=== PATIENT | female | born 1990 | race Caucasian/White ===

== ENCOUNTER 2017-04-26 19:36 | Emergency (ER) | payer SELFPAY ==
[2017-04-26 19:51] VITALS: BP 168/103
--- NOTE | 2017-04-26 20:35 | RAD ---
Indication: Lateral LEFT lower leg and ankle pain post fall. Comparison: No relevant prior exams available on the [facility] for comparison. Technique: AP and lateral views LEFT lower leg. Report: Negative for fracture or malalignment. Unremarkable soft tissue contours. IMPRESSION: Negative exam.
--- NOTE | 2017-04-26 21:35 | UC ---
Lower Extremity/Ankle HPI - HPI Summary HPI Summary: Fell on stairs twisted left ankle pain in left ankle radiating up fibula - History of Current Complaint Chief Complaint: UCLowerExtremity Stated Complaint: ANKLE Time Seen by Provider: 04/26/17 20:00 Hx Obtained From: Patient Hx Last Menstrual Period: iud ?: No Onset/Duration: Sudden Onset Pain Intensity: 6 Pain Scale Used: 0-10 Numeric Aggravating Factor(s): Standing, Ambulation Alleviating Factor(s): Rest, Elevation Able to Bear Weight: Yes - Allergies/Home Medications Allergies/Adverse Reactions: Allergies Allergy/AdvReac Type Severity Reaction Status Date / Time Bee Venom Allergy Severe Anaphylatic Verified 04/26/17 19:47 Shock Cefixime [From Suprax] Allergy Severe Anaphylatic Verified 04/26/17 19:47 Shock Sodium Benzoate [From Suprax] Allergy Severe Anaphylatic Verified 04/26/17 19:47 Shock Amoxicillin Allergy Intermediate Rash Verified 04/26/17 19:47 Penicillins Allergy Intermediate Rash Verified 04/26/17 19:47 PMH/Surg Hx/FS Hx/Imm Hx Previously Healthy: Yes - Surgical History Surgical History: Yes Surgery Procedure, Year, and Place: 2010 band both knees, T&A, wisdom teeth - Family History Known Family History: Positive: Diabetes, Other - cancer - Social History Occupation: Employed Full-time Lives: With Family Alcohol Use: Occasionally Substance Use Type: None Smoking Status (MU): Never Smoked Tobacco Review of Systems Constitutional: Negative Skin: Negative Eyes: Negative ENT: Negative Respiratory: Negative Cardiovascular: Negative Gastrointestinal: Negative Genitourinary: Negative Motor: Negative Neurovascular: Negative Musculoskeletal: Arthralgia - laft lateral ankle and fibula Neurological: Negative Psychological: Negative Is Patient Immunocompromised?: No All Other Systems Reviewed And Are Negative: Yes Physical Exam Triage Information Reviewed: Yes Appearance: Well-Appearing, Well-Nourished, Pain Distress - mild Vital Signs: Initial Vital Signs Temp 98 F 04/26/17 19:48 Pulse 86 04/26/17 19:48 Resp 16 04/26/17 19:48 BP 168/103 04/26/17 19:48 Pulse Ox 99 04/26/17 19:48 Vital Signs Reviewed: Yes Eye Exam: Normal Eyes: Positive: Conjunctiva Clear ENT Exam: Normal ENT: Positive: Normal ENT inspection, Hearing grossly normal. Negative: Nasal congestion, Nasal drainage, Trismus, Muffled/hoarse voice Neck exam: Normal Neck: Positive: Supple, Nontender Respiratory Exam: Normal Respiratory: Positive: Chest non-tender, No respiratory distress, No accessory muscle use Cardiovascular Exam: Normal Cardiovascular: Positive: RRR, Pulses Normal, Brisk Capillary Refill Musculoskeletal Exam: Other Musculoskeletal: Positive: No Edema, ROM Limited @ - left ankle Neurological Exam: Normal Neurological: Positive: Alert, Muscle Tone Normal Psychological Exam: Normal Skin Exam: Normal Diagnostics - Radiology No standard instances Xray Interpretation: No Acute Changes Radiology Interpretation Completed By: ED Physician, Radiologist Lower Extremity Course/Dx - Course Course Of Treatment: rice, juan a, gel ibuprofen follow with ortho prn - Differential Dx/Diagnosis Provider Diagnoses: Left ankle sprain Discharge - Discharge Plan Condition: Stable Disposition: HOME Patient Education Materials: Ibuprofen (By mouth), Ankle Sprain (ED), Ankle Stirrup Splint (ED), RICE Therapy (ED) Forms: *Work Release Referrals: Aj Peck MD [Medical Doctor] - If Needed Montserrat Marshall MD [Primary Care Provider] -
== END 2017-04-26 20:50 | disposition home or self-care (01) ==
LOC: UCEAST 19:36
DX: S93.402A Sprain of unspecified ligament of left ankle, initial encounter (principal); W10.9XXA Fall (on) (from) unspecified stairs and steps, initial encounter; Y93.9 Activity, unspecified; Y92.9 Unspecified place or not applicable; Z88.0 Allergy status to penicillin; Z91.030 Bee allergy status
CPT/HCPCS: 99213; G0463

== ENCOUNTER → 2017-07-07 19:13 | Emergency (ER) | payer BC, OTHER ==
[2017-07-07 19:17] VITALS: BP 151/99
[2017-07-07 19:49] LABS: Hematocrit 42 % (35-47); Hemoglobin 14.9 g/dl (12.0-16.0); Mean Corpuscular HGB Conc 35 g/dl (31-36); Mean Corpuscular Hemoglobin 31 pg (27-31); Mean Corpuscular Volume 88 fL (80-97); Mean Platelet Volume 9 um3 (7.4-10.4); Red Blood Count 4.82 10^6/ul (4.0-5.4); Red Cell Distribution Width 12 % (10.5-15); White Blood Count 8.8 10^3/ul (3.5-10.8)
--- NOTE | 2017-07-07 20:00 | ED ---
- HPI Summary HPI Summary: 27F presents with needle stick to right index finger. She states eh was pulling needle out of patient arm and nicked her finger through glove. no blood from area. washed hand immediately. felt a prick. does not believe is high risk source patient. medical number of source patient is [id number]. - History of Current Complaint Chief Complaint: EDExposureBodyFluid Stated Complaint: NEEDLE STICK Time Seen by Provider: 07/07/17 19:42 PMH/Surg Hx/FS Hx/Imm Hx Endocrine/Hematology History: Denies: Hx Diabetes, Hx Thyroid Disease Cardiovascular History: Reports: Hx Hypertension - not on meds Respiratory History: Denies: Hx Asthma, Hx Chronic Obstructive Pulmonary Disease (COPD) GI History: Denies: Hx Ulcer - Surgical History Surgery Procedure, Year, and Place: 2010 band both knees, T&A, wisdom teeth - Immunization History Date of Tetanus Vaccine: UTD Immunizations Up to Date: Yes Infectious Disease History: No Infectious Disease History: Denies: Hx Clostridium Difficile, Hx Hepatitis, Hx Human Immunodeficiency Virus (HIV), Hx of Known/Suspected MRSA, Hx Shingles, Hx Tuberculosis, Hx Known/ Suspected VRE, Hx Known/Suspected VRSA, History Other Infectious Disease, Traveled Outside the [place] in Last 30 Days - Family History Known Family History: Positive: Diabetes, Other - cancer - Social History Alcohol Use: Occasionally Substance Use Type: Reports: None Hx Tobacco Use: No Smoking Status (MU): Never Smoked Tobacco Review of Systems Negative: Fever Negative: Chest Pain Negative: Shortness Of Breath Positive: Other - needlestick All Other Systems Reviewed And Are Negative: Yes Physical Exam Triage Information Reviewed: Yes Vital Signs On Initial Exam: Initial Vitals Temp Pulse Resp BP Pulse Ox 98.3 F 79 16 151/99 99 07/07/17 19:16 07/07/17 19:16 07/07/17 19:16 07/07/17 19:16 07/07/17 19:16 Vital Signs Reviewed: Yes Appearance: Positive: Well-Appearing Skin: Positive: Warm, Dry, Other - puncture wound left index dip Head/Face: Positive: Normal Head/Face Inspection Eyes: Positive: Normal, Conjunctiva Clear Respiratory/Lung Sounds: Positive: Clear to Auscultation, Breath Sounds Present Cardiovascular: Positive: Normal, RRR Musculoskeletal: Positive: Strength/ROM Intact - left finger Neurological: Positive: Normal Psychiatric: Positive: Normal - Lizet Coma Scale Coma Scale Total: 15 Diagnostics - Vital Signs Vital Signs Temp Pulse Resp BP Pulse Ox 07/07/17 19:16 98.3 F 79 16 151/99 99 - Laboratory Lab Results: Lab Results 07/07/17 Range/Units 19:36 WBC 8.8 (3.5-10.8) 10^3/ul RBC 4.82 (4.0-5.4) 10^6/ul Hgb 14.9 (12.0-16.0) g/dl Hct 42 (35-47) % MCV 88 (80-97) fL MCH 31 (27-31) pg MCHC 35 (31-36) g/dl RDW 12 (10.5-15) % Plt Count 218 (150-450) 10^3/ul MPV 9 (7.4-10.4) um3 Neut % (Auto) 56.0 (38-83) % Lymph % (Auto) 36.0 (25-47) % [place] % (Auto) 6.0 (1-9) % Eos % (Auto) 1.4 (0-6) % Baso % (Auto) 0.6 (0-2) % Absolute Neuts (auto) 4.9 (1.5-7.7) 10^3/ul Absolute Lymphs (auto) 3.2 (1.0-4.8) 10^3/ul Absolute Monos (auto) 0.5 (0-0.8) 10^3/ul Absolute Eos (auto) 0.1 (0-0.6) 10^3/ul Absolute Basos (auto) 0 (0-0.2) 10^3/ul Absolute Nucleated RBC 0.01 10^3/ul Nucleated RBC % 0.1 Result Diagrams: 07/07/17 19:36 Lab Statement: Any lab studies that have been ordered have been reviewed, and results considered in the medical decision making process. Needlestick Course/Dx - Course Course Of Treatment: 27F presents with needle stick to right index finger. She states eh was pulling needle out of patient arm and nicked her finger through glove. no blood from area. washed hand immediately. felt a prick. does not believe is high risk source patient. medical number of source patient is [id number]. one exam small puncture of DIP of left finger. source patient is neg HIV and patient tetanus up to date. discussed no need for PEP at this time. told to follow up with dr wan if hep c comes back positive. patient understand and agrees with plan. - Diagnoses Provider Diagnoses: Needlestick injury accident Discharge - Discharge Plan Condition: Good Disposition: HOME Patient Education Materials: Needle Stick Injuries (ED) Referrals: Montserrat Marshall MD [Primary Care Provider] - Additional Instructions: Follow up with dr wan if hep c comes back pos Return to ED if develop any new or worsening symptoms
[2017-07-07 20:25] LABS: Rapid HIV INT CONT QC Line Present
[2017-07-07 20:26] LABS: Rapid HIV Kit Lot# H080007
[2017-07-07 20:33] LABS: ALT 17 U/L (7-52); AST 13 U/L (13-39); Albumin 4.6 g/dL (3.2-5.2); Alkaline Phosphatase 62 U/L (34-104); Anion Gap 6 mmol/L (2-11); BUN/Creatinine Ratio 14.9 (8-20); Blood Urea Nitrogen 14 mg/dL (6-24); CO2 Carbon Dioxide 27 mmol/L (22-32); Calcium 9.5 mg/dL (8.6-10.3); Chloride 104 mmol/L (101-111); EGFR African American 92.6 (>60); Globulin 2.5 g/dL (2-4); Glucose 105 mg/dL (70-100); Potassium 3.9 mmol/L (3.5-5.0); Sodium 137 mmol/L (133-145); Total Protein 7.1 g/dL (6.4-8.9)
== END | disposition home or self-care (01) ==
LOC: ED 19:13
DX: S61.230A Puncture wound without foreign body of right index finger without damage to nail, initial encounter (principal); W27.3XXA Contact with needle (sewing), initial encounter; Y93.9 Activity, unspecified; Y92.239 Unspecified place in hospital as the place of occurrence of the external cause
CPT/HCPCS: 36415; 80053; 84702; 85025; 86703; 86706; 86803; 87340; 99282

== ENCOUNTER 2019-05-15 11:26 | Emergency (ER) | payer BC ==
--- OUTSIDE RECORDS SUMMARY | 2019-05-15 12:05 | XMS REPORT | Continuity of Care Document ---
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 Problems Description No Information Available Social History Type Date Description Comments Sex Unknown Tobacco Use Start: Unknown Nonsmoker ETOH Use Occasional Recreational Drug Use Denies Drug Use Tobacco Use Start: Unknown Patient has never smoked Smoking Status Reviewed: 08/10/18 Patient has never smoked Allergies, Adverse Reactions, Alerts Active Allergies Reaction Severity Comments Date Penicillins 08/05/2011 Amoxicillin 08/05/2011 Suprax difficulty breathing 04/10/2015 Neosporin Hives 02/04/2016 Bees 10/08/2016 Medications Active Medications SIG Qnty Indications Ordering Provider Date Epinephrine use as directed by maribel Betancourt 04/07/2019 prescriber AMALIA Rob 0.3mg/0.3ML Solution Auto-Inject Alprazolam 1 twice a day as 30tabs S81.811A Bettina Betancourt 01/30/2016 0.25mg needed anxiety AMALIA Rob Tablets Epipen 2-Phani use as directed maribel Roberts 11/07/2014 AMALIA Fernandez 0.3mg/0.3ML Solution Auto-Inject Xopenex HFA 2 puffs four times 15gm Lakisha 45mcg/Act a day as needed LUIS Davison Aerosol Medications Administered in Office Medication SIG Qnty Indications Ordering Provider Date TB Intradermal Test Montserrat Marshall M.D. 02/24/2013 Injection TB Intradermal Test LUIS Espinoza 02/10/2013 Injection Immunizations CPT Code Status Date Vaccine Lot # [id number] Given 06/27/2013 Hep A Adlt Immunization [id number] Given 04/25/2013 DO Not Use Split Influenza Virus Vaccine [id number] 40062 Given 02/10/2013 Meningococcal Conjugate Vaccine,Serogroups For [id number] Intramuscular Use 69034 Given 02/10/2013 Tdap Tetanus, W Pertussis [id number] Vital Signs Date Vital Result Comment 04/12/2019 1:31pm BP Systolic 150 mmHg BP Diastolic 80 mmHg Heart Rate 72 /min Body Temperature 98.6 F Respiratory Rate 16 /min Height 64 inches 5'4" Weight 174.00 lb BMI (Body Mass Index) 29.9 kg/m2 08/10/2018 11:01am BP Systolic 136 mmHg BP Diastolic 80 mmHg Heart Rate 60 /min Body Temperature 99.3 F Respiratory Rate 16 /min Height 63.5 inches 5'3.50" Weight 173.00 lb BMI (Body Mass Index) 30.2 kg/m2 Results Test Date Facility Test Result H/L Range Note Ua - Non Micro (Fma) 04/12/2019 [facility] Appearance Clear (607)- - Color Yellow Glucose, Urine (Fma/CMC/CTX) Negative Bilirubin Negative Ketones Negative SP Grav 1.015 Blood Neg. Dip PH 5.5 Protein Negative Urobil 0.2 Nitrite Negative Leukocytes (a/CMC/Centrex) Negative Laboratory test 04/12/2019 [facility] [place]) Free T4 <pending> 0.75- 1.54 finding TSH <pending> 0.5-5.0 Procedures Description No Information Available Medical Devices Description No Information Available Encounters Description No Information Available Assessments Date Code Description Provider 04/12/2019 F41.9 Anxiety disorder, unspecified LUIS Duke 04/12/2019 I10 Essential (primary) hypertension LUIS Duke 04/12/2019 R53.1 Weakness LUIS Duke 04/12/2019 Z00.00 Encounter for general adult medical LUIS Duke examination without abnormal findings Plan of Treatment Future Appointment(s):06/29/2019 8:30 am - LUIS Duke at [facility]04/12/2019 - LUIS DukeF41.9 Anxiety disorder, unspecifiedComments:Chronic, exaccerbated, severe. Look into therapy, your EAP is available, BC/BS has someone they wantyou to see, I like [facility] because of diversity of providers and they par. with insuranceStart somewhere. Let me know if you need helpYour brain is in hyperdrive, xanax would help. Think of it this way; if you had rhabdo you'd accept INTRAVENOUS FLUIDS, accept xanax as TREATMENT OF YOUR [id number] Essential (primary) hypertensionComments:Think about pros/cons of a beta-keyshawn -- you basically NEED this now-- but until anxiety under much better control, I think you taking apill every day is a TERRIBLE ideaLook into RESPARATE machine onlineTherapy is probably cheaper, but look it up, the data is better than you'd [id number] WeaknessComments:The patient was instructed to call or return to the office if there was no improvement .Z00.00 Encounter for general adult medical examination without abnormal findingsAllComments:Medication Management Patient Understands medications he 's taking? Yes No Are there Barriers to Adherence? Yes No Has the patient been asked about herbal supplements and therapies, andOTC meds? Yes No As always, we strongly encourage a healthy diet and making physical activity a part of your every day life. If you have questions about how or where to start, please contact the office. Functional Status Description No Information Available Mental Status Description No Information Available Referrals Description No Information Available
[2019-05-15 12:09] VITALS: BP 164/95
--- NOTE | 2019-05-15 12:32 | UC ---
Nausea/Vomiting/Diarrhea HPI - HPI Summary HPI Summary: 29-year-old woman comes in with a chief complaint of diarrhea and abdominal cramping. This started 4 days ago. Is also been nauseous. 5 days ago she did eat some Nepali food she is wondering if that is the source of the symptoms. Low-grade fevers. Diarrhea is watery white in color. The abdominal cramping is diffuse and intermittent. Patient's been nauseous and has had minimal by mouth intake. Decreased urination but no burning with urination. No recent antibiotics. Patient has felt somewhat lightheaded. - History of Current Complaint Chief Complaint: UCGI Stated Complaint: DIARRHEA Time Seen by Provider: 05/15/19 12:13 Hx Last Menstrual Period: no periods Pain Intensity: 0 - Allergies/Home Medications Allergies/Adverse Reactions: Allergies Allergy/AdvReac Type Severity Reaction Status Date / Time amoxicillin Allergy Rash Verified 05/15/19 12:10 bee venom protein (honey bee) Allergy Anaphylatic Verified 05/15/19 12:10 Shock cefixime [From Suprax] Allergy Anaphylatic Verified 05/15/19 12:10 Shock Penicillins Allergy Rash Verified 05/15/19 12:10 PMH/Surg Hx/FS Hx/Imm Hx Previously Healthy: Yes - Surgical History Surgical History: Yes Surgery Procedure, Year, and Place: 2010 band both knees, T&A, wisdom teeth - Family History Known Family History: Positive: Diabetes, Other - cancer - Social History Alcohol Use: Rare Substance Use Type: None Smoking Status (MU): Never Smoked Tobacco Review of Systems All Other Systems Reviewed And Are Negative: Yes Constitutional: Positive: Fatigue, Other - see hpi Skin: Positive: Negative Eyes: Positive: Negative ENT: Positive: Negative Respiratory: Positive: Negative Cardiovascular: Positive: Negative Gastrointestinal: Positive: Abdominal Pain - see hpi Genitourinary: Positive: Negative Motor: Positive: Negative Neurovascular: Positive: Negative Musculoskeletal: Positive: Negative Neurological: Positive: Negative Psychological: Positive: Negative Is Patient Immunocompromised?: No Physical Exam Triage Information Reviewed: Yes Appearance: Well-Appearing, No Pain Distress, Well-Nourished Vital Signs: Initial Vital Signs Temp 99.3 F 05/15/19 12:04 Pulse 86 05/15/19 12:04 Resp 16 05/15/19 12:04 BP 164/95 05/15/19 12:04 Pulse Ox 100 05/15/19 12:04 Vital Signs Reviewed: Yes Eye Exam: Normal Eyes: Positive: Conjunctiva Clear ENT: Positive: Pharynx normal Neck: Positive: Supple Respiratory: Positive: Lungs clear, Normal breath sounds, No respiratory distress Cardiovascular: Positive: RRR Abdomen Description: Positive: Soft, Other: - On palpation of the abdomen patient reports that increases her nausea denies any tenderness. Musculoskeletal: Positive: Strength Intact, ROM Intact Neurological: Positive: Alert, Muscle Tone Normal Psychological: Positive: Age Appropriate Behavior Skin Exam: Normal Naus/Vom/Diarrhea Course/Dx - Course Course Of Treatment: On examination patient's abdomen is nontender no fever here in clinic. Vital signs are stable. Stool sample was collected here in clinic and is being sent for fecal lactoferrin, stool occult blood, stool culture, and C. difficile and O &P. Plan will be to follow-up with her primary care doctor if not completely improved. If she worsens with fevers blood in stool focal area pain then she should get reevaluated in the emergency department. - Differential Dx/Diagnosis Provider Diagnosis: Diarrhea, Nausea Condition At Discharge: Stable Discharge ED - Sign-Out/Discharge Documenting (check all that apply): Patient Departure All imaging exams completed and their final reports reviewed: No Studies - Discharge Plan Condition: Stable Disposition: HOME Prescriptions: Ondansetron ODT TAB* [Zofran 4 MG Odt TAB*] 4 mg PO Q6H PRN #10 tab.odt PRN Reason: Nausea Patient Education Materials: Acute Nausea and Vomiting (ED), Acute Diarrhea (ED ) Forms: *Work Release Referrals: Montserrat Marshall MD [Primary Care Provider] - Additional Instructions: FOLLOW UP WITH YOUR DOCTOR IF NOT COMPLETELY IMPROVED. GET RECHECKED SOONER IF YOUR CONDITION WORSENS; PAIN, FEVER, BLOOD IN YOUR STOOL , DEHYDRATION, YOU FEEL ILL OR ANY QUESTIONS OR CONCERNS. - Billing Disposition and Condition Condition: STABLE Disposition: Home
--- NOTE | 2019-05-16 15:44 | UC ---
- Progress Note Progress Note: Partial results on stool cultures some are still pending C. difficile is negative stool for occult blood was positive patient is to follow-up with her primary care provider if no improvement and inform her some results are still pending. Course/Dx - Diagnoses Provider Diagnoses: Diarrhea, Nausea Discharge ED - Sign-Out/Discharge Documenting (check all that apply): Post-Discharge Follow Up All imaging exams completed and their final reports reviewed: No Studies - Discharge Plan Condition: Stable Disposition: HOME Prescriptions: Ondansetron ODT TAB* [Zofran 4 MG Odt TAB*] 4 mg PO Q6H PRN #10 tab.odt PRN Reason: Nausea Patient Education Materials: Acute Nausea and Vomiting (ED), Acute Diarrhea (ED ) Forms: *Work Release Referrals: Montserrat Marshall MD [Primary Care Provider] - Additional Instructions: FOLLOW UP WITH YOUR DOCTOR IF NOT COMPLETELY IMPROVED. GET RECHECKED SOONER IF YOUR CONDITION WORSENS; PAIN, FEVER, BLOOD IN YOUR STOOL , DEHYDRATION, YOU FEEL ILL OR ANY QUESTIONS OR CONCERNS. - Billing Disposition and Condition Condition: STABLE Disposition: Home
--- NOTE | 2019-05-17 22:40 | UC ---
- Progress Note Progress Note: Patient was aware that she had blood in stool. Cultures negative for bacteria, but have + lactoferrin. Ensure that she has follow up her primary--if diarrhea is persistent, she needs more evaluation, likely with GI. Lactoferrin + indicates that there is inflammation, but it does NOT give a diagnosis. Course/Dx - Diagnoses Provider Diagnoses: Diarrhea, Nausea Discharge ED - Sign-Out/Discharge Documenting (check all that apply): Post-Discharge Follow Up All imaging exams completed and their final reports reviewed: No Studies - Discharge Plan Condition: Stable Disposition: HOME Prescriptions: Ondansetron ODT TAB* [Zofran 4 MG Odt TAB*] 4 mg PO Q6H PRN #10 tab.odt PRN Reason: Nausea Patient Education Materials: Acute Nausea and Vomiting (ED), Acute Diarrhea (ED ) Forms: *Work Release Referrals: Montserrat Marshall MD [Primary Care Provider] - Additional Instructions: FOLLOW UP WITH YOUR DOCTOR IF NOT COMPLETELY IMPROVED. GET RECHECKED SOONER IF YOUR CONDITION WORSENS; PAIN, FEVER, BLOOD IN YOUR STOOL , DEHYDRATION, YOU FEEL ILL OR ANY QUESTIONS OR CONCERNS. - Billing Disposition and Condition Condition: STABLE Disposition: Home
== END 2019-05-15 12:55 | disposition home or self-care (01) ==
LOC: UCEAST 11:26
DX: R19.7 Diarrhea, unspecified (principal); R11.0 Nausea; R10.9 Unspecified abdominal pain; R53.83 Other fatigue; R50.9 Fever, unspecified; Z88.0 Allergy status to penicillin; Z91.030 Bee allergy status; Z88.1 Allergy status to other antibiotic agents
CPT/HCPCS: 82270; 83630; 87045; 87046; 87328; 87329; 87493; 87899; 99212; G0463

== ENCOUNTER 2019-05-20 07:56 | Emergency (ER) | payer BC ==
--- OUTSIDE RECORDS SUMMARY | 2019-05-20 08:02 | XMS REPORT | Continuity of Care Document ---
:1990 External Reference #:[id number] Author Name LUIS Duke Address [address] [place] [address] Care Team Providers Name Role Phone Montserrat Marshall - Family Medicine Care Team Information Internal Audit Manager [phone] Problems Description No Information Available Social History [...] CPT Code Status Date Vaccine Lot # [id number] Given 06/27/2013 Hep A Adlt Immunization [id number] 80937 Given 04/25/2013 DO Not Use Split Influenza Virus Vaccine [id number] 02889 Given 02/10/2013 Meningococcal Conjugate Vaccine,Serogroups For [id number] Intramuscular Use [id number] Given 02/10/2013 Tdap Tetanus, W Pertussis [id number] Vital Signs Date Vital Result Comment 05/17/2019 10:08am BP Systolic 138 mmHg BP Diastolic 80 mmHg Heart Rate 72 /min Body Temperature 97.9 F Respiratory Rate 16 /min Weight 171.00 lb 04/12/2019 1:31pm BP Systolic 150 mmHg BP Diastolic 80 mmHg Heart Rate 72 /min Body Temperature 98.6 F Respiratory Rate 16 /min Height 64 inches 5'4" Weight 174.00 lb BMI (Body Mass Index) 29.9 kg/m2 Results Test Date Facility Test Result H/L Range Note Ua - Non Micro ([facility]) 04/12/2019 [facility] Clear (607)- - Color Yellow Glucose, Urine ([facility]/CTX) Negative Bilirubin Negative Ketones Negative SP Grav 1.015 Blood Neg. Dip PH 5.5 Protein Negative Urobil 0.2 Nitrite Negative Leukocytes ([facility]/Centrex) Negative Comprehensive Metabolic 04/12/2019 [facility]) Sodium 135 mEq/L 134-149 Prof Potassium 4.0 mEq/L 3.6-5.5 Chloride 98 mEq/L 94-112 Carbon Dioxide 25 mEq/L 21-32 Glucose 101 mg/dL 70-105 BUN 13 mg/dL 6-26 Creatinine 0.9 mg/dL 0.6-1.4 BUN/Creat Ratio 14.4 CALC 8.0-36.0 Calcium 9.9 mg/dL 8.6-10.2 Total Protein 8.0 g/dL 6.4-8.3 Albumin 5.3 g/dL 3.8-5.5 Globulin 2.7 g/dL 2.0-4.8 A/G Ratio 2.0 CALC 0.6-2.3 Alk. Phosphatase 74 U/L 30-110 Alt (SGPT) 32 U/L 7-35 Ast (Sgot) 21 U/L 5-34 Total Bilirubin 0.6 mg/dL 0.2-1.3 GFR Non- >60 ml/min/1.73m^ >=60 GFR >60 ml/min/1.73m^ >=60 Laboratory test 04/12/2019 [facility](a) Free T4 0.90 ng/dL 0.75- 1.54 finding TSH 2.08 mIU/L 0.50-6.00 CBC Electronic [facility]ma 04/12/2019 [facility](a) WBC 8.1 x10^3/UL 4.0- 10.0 RBC 5.12 x10^6/UL 3.93-6.00 HGB 16.0 g/dL 12.0-17.0 HCT 45 % 35-50 MCV 88.1 fL 80.0-95.0 MCH 31.3 pg 25.6-32.2 MCHC 35.5 g/dL 32.2-36.0 RDW-CV 11.4 % Low 11.6-14.4 PLT 251 x10^3/UL 163-400 MPV 10.2 fL 9.4-12.4 Andrey# 4.92 x10^3/UL 1.56-6.13 Lymph# 2.43 x10^3/UL 1.18-3.74 Stafford# 0.60 x10^3/UL 0.24-0.82 Eos # 0.1 x10^3/UL 0.0-0.5 Baso # 0.03 x10^3/UL 0.01-0.08 Andrey% 60.7 % 34.0-70.0 Lymph % 30.0 % 20.0-52.0 Stafford% 7.4 % 5.0-12.0 Eos% 1.4 % 0.7-7.0 Baso% 0.4 % 0.1-1.2 Procedures Description No Information Available Medical Devices Description No Information Available Encounters Type Date Location Provider Dx Diagnosis Office Visit 04/12/2019 [facility] Lakisha F41.9 Anxiety disorder, 1:30p LUIS Davison unspecified I10 Essential (primary) hypertension R53.1 Weakness Z00.00 Encntr for general adult medical exam w/o abnormal findings Assessments Date Code Description Provider 05/17/2019 R19.7 Diarrhea, unspecified LUIS Duke 05/17/2019 R10.84 Generalized abdominal pain Lakisha Marksbhart, [employer] 04/12/2019 F41.9 Anxiety disorder, unspecified Lakisha Marksbhart, [employer] 04/12/2019 I10 Essential (primary) hypertension Lakisha Marksbhart, [facility] 04/12/2019 R53.1 Weakness Lakisha Marksbhart, [facility] 04/12/2019 Z00.00 Encounter for general adult medical LUIS Duke examination without abnormal findings Plan of Treatment Future Appointment(s):06/29/2019 8:30 am - LUIS Duke at [facility] Vopmsa9805/17/2019 - PAN DukePR19.7 Diarrhea, unspecifiedComments: Sounds like you are resolving, stay with BRAT and advance very slowly to ensure toleranceCall MILTON if condition changes/worsens in any way Was your last pap really 2014??R10.84 Generalized abdominal painNew Labs:CBC Electronic-ALL Lab Compani, Ordered: 05/17/19Comments:The patient was instructed to call if symptoms of abdominal pain worsen.AllComments:Medication Management Patient Understands medications he 's taking? Yes No Are there Barriers to Adherence? Yes No Has the patient been asked about herbal supplements and therapies, andOT meds? Yes No As always, we strongly encourage a healthy diet and making physical activity a part of your every day life. If you have questions about how or where to start, please contact the office. Functional Status Description No Information Available Mental Status Description No Information Available Referrals Description No Information Available
[2019-05-20 08:05] VITALS: BP 155/90
--- NOTE | 2019-05-20 08:25 | UC ---
UC General HPI - HPI Summary HPI Summary: Patient ate Wol[place] food 10 day sago, next day had diarrhea which progressed to nausea/vomiting and diarrhea over next few days. no other close contacts with same. saw UC and stool was sent, she then saw PCP and was given zofran which was not that helpful. yesterday patient felt well, diarrhea was less watery. sp tto work today and while sitting became nauseous, felt dizzy and faint and had to be helped to bathroom where she vomited and had diarrhea Can precipitate dizziness when asked to move head from side to side, denies ear symps, says she always has some chronic sinus issues that have not changed in past week. she also reports intermittent low grade fever (99.6) during past week. No travel, no new meds, no close contacts with same symps - History of Current Complaint Chief Complaint: UCDizziness Stated Complaint: DIZZINESS Time Seen by Provider: 05/20/19 07:58 Hx Obtained From: Patient Hx Last Menstrual Period: IUD Onset/Duration: Gradual Onset Pain Intensity: 0 Associated Signs & Symptoms: Positive: Diarrhea, Fever, Nausea - Allergy/Home Medications Allergies/Adverse Reactions: Allergies Allergy/AdvReac Type Severity Reaction Status Date / Time amoxicillin Allergy Rash Verified 05/20/19 08:05 bee venom protein (honey bee) Allergy Anaphylatic Verified 05/20/19 08:05 Shock cefixime [From Suprax] Allergy Anaphylatic Verified 05/20/19 08:05 Shock Penicillins Allergy Rash Verified 05/20/19 08:05 PMH/Surg Hx/FS Hx/Imm Hx Previously Healthy: Yes - Surgical History Surgical History: Yes Surgery Procedure, Year, and Place: 2010 band both knees, T&A, wisdom teeth - Family History Known Family History: Positive: Diabetes, Other - cancer - Social History 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 Negative: Rash Respiratory: Positive: Negative. Negative: Cough Cardiovascular: Positive: Negative Gastrointestinal: Positive: Vomiting, Diarrhea, Nausea. Negative: Abdominal Pain Genitourinary: Positive: Negative. Negative: Dysuria, Hematuria Neurological: Positive: Negative. Negative: Headache Psychological: Positive: Negative Is Patient Immunocompromised?: No Physical Exam Triage Information Reviewed: Yes Appearance: Well-Appearing, No Pain Distress, Well-Nourished Vital Signs: Initial Vital Signs Temp 97.8 F 05/20/19 08:01 Pulse 84 05/20/19 08:01 Resp 16 05/20/19 08:01 BP 155/90 05/20/19 08:01 Pulse Ox 98 05/20/19 08:01 Vital Signs Reviewed: Yes Respiratory Exam: Normal Respiratory: Positive: Lungs clear Cardiovascular Exam: Normal Cardiovascular: Positive: RRR Abdominal Exam: Normal Abdomen Description: Positive: Nontender, No Organomegaly, Soft Bowel Sounds: Positive: Present Musculoskeletal Exam: Normal Neurological Exam: Normal Neurological: Positive: Alert Psychological Exam: Normal Skin Exam: Normal Skin: Negative: Rashes Re-Evaluation - Re-Evaluation First Eval Re-Evaluation Time: 09:35 - ambulated to BR, less dizzy and anauseous after IV Change: Improved Course/Dx - Differential Dx - Multi-Symptom Differential Diagnoses: Urinary Tract Infection, Other - colitis, viral illness , dehydrations, labyrynthitis - Diagnoses Provider Diagnosis: Gastroenteritis Discharge ED - Sign-Out/Discharge Documenting (check all that apply): Patient Departure All imaging exams completed and their final reports reviewed: No Studies - Discharge Plan Condition: Improved Disposition: HOME Patient Education Materials: Gastroenteritis (ED) Forms: *Work Release Referrals: Montserrat Marshall MD [Primary Care Provider] - 2 Days (recheck B/P and GI symptoms ) Additional Instructions: rest and drink plenty of fluids use your zofran as directed if needed for nausea if your symptoms worsen please report to ER - Billing Disposition and Condition Condition: IMPROVED Disposition: Home
[2019-05-20] MEDS ORDERED: NS 0.9% 1000 ML** 1,000 ML BOLUS SCH (08:30)
== END 2019-05-20 09:50 | disposition home or self-care (01) ==
LOC: UCEAST 07:56
DX: K52.9 Noninfective gastroenteritis and colitis, unspecified (principal); Z91.030 Bee allergy status; Z88.0 Allergy status to penicillin; Z88.1 Allergy status to other antibiotic agents
CPT/HCPCS: 96360; 99212; G0463